=== PATIENT | male | born 1970 | race Caucasian/White ===

== ENCOUNTER 2016-10-08 12:25 | Outpatient (CLI) | payer OTHER ==
[2016-10-08 13:54] LABS: ALT (SGPT) 64 U/L (0-55); AST (SGOT) 50 U/L (5-34); Albumin 4.3 g/dL (3.5-5.0); Alkaline Phosphatase 75 U/L (40-150); Anion Gap 16 mmol/L (10-20); BUN (Urea Nitrogen) 16 mg/dL (8.9-20.6); Bilirubin, Total 0.7 mg/dL (0.2-1.2); Calc. Creatinine Clearance 0 mL/min (70-130); Calcium 9.4 mg/dL (7.8-10.44); Carbon Dioxide 25 mmol/L (22-29); Cardiac Risk 4.4 (Less than 4.5); Chloride 103 mmol/L (98-107); Cholesterol 221 mg/dL (< 200 Desired); Estimated GFR-MDRD 90; Globulin 3.4 g/dL (2.4-3.5); Glucose 91 mg/dL (70-105); HDL Cholesterol 50 mg/dL (>60 Neg Risk); LDL Cholesterol, Calculated 156 mg/dL; Potassium 4.6 mmol/L (3.5-5.1); Protein, Total 7.7 g/dL (6.0-8.3); Sodium 139 mmol/L (136-145); Triglycerides 77 mg/dL (Less than 150)
== END 2016-10-08 12:26 ==
LOC: MADLABBHPM 12:25
PROVIDERS: ATTEND Family Medicine
DX: E78.5 Hyperlipidemia, unspecified (principal)
CPT/HCPCS: 36415; 80053; 80061

== ENCOUNTER 2018-01-12 16:37 | Emergency (ER) | payer BC ==
[~2018-01-12 16:37] MED LIST: Sodium Chloride 0.9% 1,000 ML BAG ONE
[2018-01-12] MEDS ORDERED: diphenhydrAMINE 50 MG/ML VIAL ONE (17:08)
[2018-01-12] MEDS ORDERED: Ketorolac Tromethamine 30 MG/ML VIAL ONE (17:08)
[2018-01-12] MEDS ORDERED: Ondansetron ODT 4 MG TAB ONE (17:08)
[2018-01-12] MEDS ORDERED: Metoclopramide HCl 10 MG/2 ML VIAL ONE (17:08)
--- NOTE | 2018-01-12 18:17 | CT ---
CT BRAIN WITHOUT CONTRAST: 01/12/18 COMPARISON: None. HISTORY: Worst headache of life. TECHNIQUE: Multiple contiguous axial images were obtained in a CT of the brain without contrast. FINDINGS: The brain is normal in morphology and attenuation without focal lesions or confluent areas of infarct ion. There is no evidence of hydrocephalus, intracranial hemorrhage, or extraaxial fluid collection. The calvarium and overlying soft tissues are unremarkable. The visualized paranasal sinuses and masto id air cells are well aerated. IMPRESSION: No evidence of acute intracranial abnormality. POS: C
== END 2018-01-12 19:15 | disposition home or self-care (01) ==
LOC: MADERS 16:37
DX: G43.909 Migraine, unspecified, not intractable, without status migrainosus (principal); I10 Essential (primary) hypertension; E78.5 Hyperlipidemia, unspecified; Z79.82 Long term (current) use of aspirin; Z87.891 Personal history of nicotine dependence
CPT/HCPCS: 70450; 96361; 96374; 96375; J1200; J1885; J2765; J7050; Q0162